=== PATIENT | female | born 1940 | race Caucasian/White ===

== ENCOUNTER 2021-02-22 10:58 | Emergency (ER) | payer MEDICARE, OTHER ==
[~2021-02-22] VITALS: Ht 156.2 cm; Wt 70.0 kg
[2021-02-22 11:09] VITALS: BP 151/91
== END 2021-02-22 12:12 | disposition home or self-care (01) ==
LOC: ER 10:58
DX: Z20.822 Contact with and (suspected) exposure to COVID-19 (principal); I10 Essential (primary) hypertension; E03.9 Hypothyroidism, unspecified
CPT/HCPCS: 87635; 99283; C9803